=== PATIENT | male | born 1965 | race Caucasian/White ===

== ENCOUNTER 2022-01-12 01:52 | Emergency (ER) | payer BC ==
[2022-01-12 02:48] VITALS: TEMP 98.7
[2022-01-12] MEDS ORDERED: SODIUM CHLORIDE 0.9% 1,000 ML IV STA (03:02)
[2022-01-12] MEDS ORDERED: SODIUM CHLORIDE 0.9% 1,000 ML IV SCH (03:15)
[2022-01-12 03:39] LABS: Basophils # (A) 0.1 k/uL (0-0.2); Basophils % (A) 1 %; Eosinophils # (A) 0.2 k/uL (0-0.7); Eosinophils % (A) 3 %; HCT 45.7 % (39.0-53.0); HGB 14.5 gm/dL (13.0-17.5); Lymphocytes # (A) 1.7 k/uL (1.0-4.8); Lymphocytes % (A) 20 %; MCH 28.7 pg (25.0-35.0); MCHC 31.8 g/dL (31.0-37.0); MCV 90.1 fL (80.0-100.0); Mean Platelet Volume 7.8; Monocytes # (A) 0.7 k/uL (0-1.0); Monocytes % (A) 8 %; Neutrophils # (A) 5.7 k/uL (1.3-7.7); Neutrophils % (A) 67 %; Platelet Count 276 k/uL (150-450); RBC 5.07 m/uL (4.30-5.90); RDW 12.6 % (11.5-15.5); WBC 8.5 k/uL (3.8-10.6)
--- NOTE | 2022-01-12 03:41 | ED ---
Dizziness HPI - General Chief Complaint: Dizziness Stated Complaint: Dizziness Time Seen by Provider: 01/12/22 02:49 Source: patient, RN notes reviewed, old records reviewed Mode of arrival: wheelchair Limitations: no limitations - History of Present Illness Initial Comments: This is a 56-year-old male DF for evaluation of dizziness. 3-4 days of symptoms dizziness especially with change of position standing up room starts to spin around he feels very off balance. Symptoms again for the last 4 days again only with position change and notices worsening is lying down to sitting up position. Patient has no chest pain or shortness breath or abdominal pain. No medical history takes no medications no family history of significant medical disease MD Complaint: dizziness, lightheadedness, difficulty walking -: hour(s) Timing: sudden onset Description: sense of movement, "room spinning" History of Same: No History of Trauma: No Severity: moderate Improves With: remaining still Worsens With: nothing Associated Symptoms: ataxia, weakness - Related Data Home Medications Medication Instructions Recorded Confirmed No Known Home Medications 07/29/16 07/29/16 Allergies Allergy/AdvReac Type Severity Reaction Status Date / Time No Known Allergies Allergy Verified 01/12/22 02:48 Review of Systems ROS Statement: Those systems with pertinent positive or pertinent negative responses have been documented in the HPI. ROS Other: All systems not noted in ROS Statement are negative. Past Medical History Past Medical History: No Reported History History of Any Multi-Drug Resistant Organisms: None Reported Past Surgical History: No Surgical Hx Reported Past Psychological History: No Psychological Hx Reported Smoking Status: Never smoker Past Alcohol Use History: Occasional Past Drug Use History: None Reported General Exam - General Exam Comments Initial Comments: NIH of 0 Currently asymptomatic General appearance: alert, in no apparent distress Head exam: Present: atraumatic, normocephalic, normal inspection Eye exam: Present: normal appearance, PERRL, EOMI, nystagmus. Absent: scleral icterus, conjunctival injection, periorbital swelling ENT exam: Present: normal exam, mucous membranes moist Neck exam: Present: normal inspection. Absent: tenderness, meningismus, lymphadenopathy Respiratory exam: Present: normal lung sounds bilaterally. Absent: respiratory distress, wheezes, rales, rhonchi, stridor Cardiovascular Exam: Present: regular rate, normal rhythm, normal heart sounds. Absent: systolic murmur, diastolic murmur, rubs, gallop, clicks GI/Abdominal exam: Present: soft, normal bowel sounds. Absent: distended, tenderness, guarding, rebound, rigid Extremities exam: Present: normal inspection, full ROM, normal capillary refill. Absent: tenderness, pedal edema, joint swelling, calf tenderness Back exam: Present: normal inspection Neurological exam: Present: alert, oriented X3, CN II-XII intact Psychiatric exam: Present: normal affect, normal mood Skin exam: Present: warm, dry, intact, normal color. Absent: rash Course Vital Signs 01/12/22 02:44 Temperature 98.7 F Pulse Rate 66 Respiratory 19 Rate Blood Pressure 124/77 O2 Sat by Pulse 98 Oximetry - Reevaluation(s) Reevaluation #1: 01/12/22 05:08 Medical record is reviewed Reevaluation #2: 01/12/22 05:08 Patient informed results and questions answered Reevaluation #3: 01/12/22 05:08 Patient requesting discharge at this time Medical Decision Making - Medical Decision Making 56 male DF for evaluation. Patient Dese for evaluation regards to dizziness vertiginous symptoms. CT brain negative for acute disease labwork is normal patient is able to eat discharged home to get rest and do continued exercises. - Lab Data Result diagrams: 01/12/22 03:33 01/12/22 03:33 Lab Results 01/12/22 01/12/22 01/12/22 Range/Units 03:33 03:33 03:33 WBC 8.5 (3.8-10.6) k/uL RBC 5.07 (4.30-5.90) m/uL Hgb 14.5 (13.0-17.5) gm/dL Hct 45.7 (39.0-53.0) % MCV 90.1 (80.0-100.0) fL MCH 28.7 (25.0-35.0) pg MCHC 31.8 (31.0-37.0) g/dL RDW 12.6 (11.5-15.5) % Plt Count 276 (150-450) k/uL MPV 7.8 Neutrophils % 67 % Lymphocytes % 20 % Monocytes % 8 % Eosinophils % 3 % Basophils % 1 % Neutrophils # 5.7 (1.3-7.7) k/uL Lymphocytes # 1.7 (1.0-4.8) k/uL Monocytes # 0.7 (0-1.0) k/uL Eosinophils # 0.2 (0-0.7) k/uL Basophils # 0.1 (0-0.2) k/uL PT 10.5 (9.0-12.0) sec INR 1.0 (<1.2) APTT 24.0 (22.0-30.0) sec Sodium (137-145) mmol/L Potassium (3.5-5.1) mmol/L Chloride (98-107) mmol/L Carbon Dioxide (22-30) mmol/L Anion Gap mmol/L BUN (9-20) mg/dL Creatinine (0.66-1.25) mg/dL Est GFR (CKD-EPI)AfAm (>60 ml/min/1.73 sqM) Est GFR (CKD-EPI)NonAf (>60 ml/min/1.73 sqM) Glucose (74-99) mg/dL Plasma Lactic Acid Mat (0.7-2.0) mmol/L Calcium (8.4-10.2) mg/dL Phosphorus (2.5-4.5) mg/dL Magnesium (1.6-2.3) mg/dL Total Bilirubin (0.2-1.3) mg/dL AST (17-59) U/L ALT (4-49) U/L Alkaline Phosphatase (38-126) U/L Troponin I (0.000-0.034) ng/mL NT-Pro-B Natriuret Pep pg/mL Total Protein (6.3-8.2) g/dL Albumin (3.5-5.0) g/dL Urine Color Light Yellow Urine Appearance Clear (Clear) Urine pH 6.0 (5.0-8.0) Ur Specific [place] 1.006 (1.001-1.035) Urine Protein Negative (Negative) Urine Glucose (UA) Negative (Negative) Urine Ketones Negative (Negative) Urine Blood Negative (Negative) Urine Nitrite Negative (Negative) Urine Bilirubin Negative (Negative) Urine Urobilinogen <2.0 (<2.0) mg/dL Ur Leukocyte Esterase Negative (Negative) 01/12/22 01/12/22 01/12/22 Range/Units 03:33 03:33 03:33 WBC (3.8-10.6) k/uL RBC (4.30-5.90) m/uL Hgb (13.0-17.5) gm/dL Hct (39.0-53.0) % MCV (80.0-100.0) fL MCH (25.0-35.0) pg MCHC (31.0-37.0) g/dL RDW (11.5-15.5) % Plt Count (150-450) k/uL MPV Neutrophils % % Lymphocytes % % Monocytes % % Eosinophils % % Basophils % % Neutrophils # (1.3-7.7) k/uL Lymphocytes # (1.0-4.8) k/uL Monocytes # (0-1.0) k/uL Eosinophils # (0-0.7) k/uL Basophils # (0-0.2) k/uL PT (9.0-12.0) sec INR (<1.2) APTT (22.0-30.0) sec Sodium 136 L (137-145) mmol/L Potassium 4.4 (3.5-5.1) mmol/L Chloride 103 (98-107) mmol/L Carbon Dioxide 26 (22-30) mmol/L Anion Gap 7 mmol/L BUN 14 (9-20) mg/dL Creatinine 0.80 (0.66-1.25) mg/dL Est GFR (CKD-EPI)AfAm >90 (>60 ml/min/1.73 sqM) Est GFR (CKD-EPI)NonAf >90 (>60 ml/min/1.73 sqM) Glucose 127 H (74-99) mg/dL Plasma Lactic Acid Mat 1.6 (0.7-2.0) mmol/L Calcium 9.3 (8.4-10.2) mg/dL Phosphorus 4.1 (2.5-4.5) mg/dL Magnesium 2.3 (1.6-2.3) mg/dL Total Bilirubin 0.9 (0.2-1.3) mg/dL AST 24 (17-59) U/L ALT 17 (4-49) U/L Alkaline Phosphatase 70 (38-126) U/L Troponin I <0.012 (0.000-0.034) ng/mL NT-Pro-B Natriuret Pep pg/mL Total Protein 7.2 (6.3-8.2) g/dL Albumin 4.2 (3.5-5.0) g/dL Urine Color Urine Appearance (Clear) Urine pH (5.0-8.0) Ur Specific [place] (1.001-1.035) Urine Protein (Negative) Urine Glucose (UA) (Negative) Urine Ketones (Negative) Urine Blood (Negative) Urine Nitrite (Negative) Urine Bilirubin (Negative) Urine Urobilinogen (<2.0) mg/dL Ur Leukocyte Esterase (Negative) 01/12/22 Range/Units 03:33 WBC (3.8-10.6) k/uL RBC (4.30-5.90) m/uL Hgb (13.0-17.5) gm/dL Hct (39.0-53.0) % MCV (80.0-100.0) fL MCH (25.0-35.0) pg MCHC (31.0-37.0) g/dL RDW (11.5-15.5) % Plt Count (150-450) k/uL MPV Neutrophils % % Lymphocytes % % Monocytes % % Eosinophils % % Basophils % % Neutrophils # (1.3-7.7) k/uL Lymphocytes # (1.0-4.8) k/uL Monocytes # (0-1.0) k/uL Eosinophils # (0-0.7) k/uL Basophils # (0-0.2) k/uL PT (9.0-12.0) sec INR (<1.2) APTT (22.0-30.0) sec Sodium (137-145) mmol/L Potassium (3.5-5.1) mmol/L Chloride (98-107) mmol/L Carbon Dioxide (22-30) mmol/L Anion Gap mmol/L BUN (9-20) mg/dL Creatinine (0.66-1.25) mg/dL Est GFR (CKD-EPI)AfAm (>60 ml/min/1.73 sqM) Est GFR (CKD-EPI)NonAf (>60 ml/min/1.73 sqM) Glucose (74-99) mg/dL Plasma Lactic Acid Mat (0.7-2.0) mmol/L Calcium (8.4-10.2) mg/dL Phosphorus (2.5-4.5) mg/dL Magnesium (1.6-2.3) mg/dL Total Bilirubin (0.2-1.3) mg/dL AST (17-59) U/L ALT (4-49) U/L Alkaline Phosphatase (38-126) U/L Troponin I (0.000-0.034) ng/mL NT-Pro-B Natriuret Pep 36 pg/mL Total Protein (6.3-8.2) g/dL Albumin (3.5-5.0) g/dL Urine Color Urine Appearance (Clear) Urine pH (5.0-8.0) Ur Specific [place] (1.001-1.035) Urine Protein (Negative) Urine Glucose (UA) (Negative) Urine Ketones (Negative) Urine Blood (Negative) Urine Nitrite (Negative) Urine Bilirubin (Negative) Urine Urobilinogen (<2.0) mg/dL Ur Leukocyte Esterase (Negative) - Radiology Data Radiology results: report reviewed (CT brain CT had neck chest x-rays negative for acute disease), image reviewed Disposition Clinical Impression: Benign paroxysmal positional vertigo, Acute vestibular neuronitis, Vertigo Disposition: HOME SELF-CARE Condition: Good Instructions (If sedation given, give patient instructions): Vertigo (ED), Benign Paroxysmal Positional Vertigo (ED) Is patient prescribed a controlled substance at d/c from ED?: No Referrals: None,Stated [Primary Care Provider] - 1-2 days
[2022-01-12 04:05] LABS: ALT 17 U/L (4-49); AST 24 U/L (17-59); African American GFR (CKD) >90 (>60 ml/min/1.73 sqM); Albumin 4.2 g/dL (3.5-5.0); Alkaline Phosphatase 70 U/L (38-126); Anion Gap 7 mmol/L; Blood Urea Nitrogen 14 mg/dL (9-20); Calcium 9.3 mg/dL (8.4-10.2); Carbon Dioxide 26 mmol/L (22-30); Chloride 103 mmol/L (98-107); Glucose 127 mg/dL (74-99); Magnesium 2.3 mg/dL (1.6-2.3); Non-African American GFR(CKD) >90 (>60 ml/min/1.73 sqM); Phosphorus 4.1 mg/dL (2.5-4.5); Potassium 4.4 mmol/L (3.5-5.1); Prothrombin Time 10.5 sec (9.0-12.0); Sodium 136 mmol/L (137-145); Total Bilirubin 0.9 mg/dL (0.2-1.3); Total Protein 7.2 g/dL (6.3-8.2)
[2022-01-12 04:08] LABS: Appearance,Urine Clear (Clear); Bilirubin,Urine Negative (Negative); Blood,Urine Negative (Negative); Color,Urine Light Yellow; Glucose,Urine (UA) Negative (Negative); Ketones,Urine Negative (Negative); Leukocyte Esterase,Urine Negative (Negative); Nitrite,Urine Negative (Negative); Protein,Urine Negative (Negative); Specific Gravity,Urine 1.006 (1.001-1.035); Urobilinogen,Urine <2.0 mg/dL (<2.0)
--- NOTE | 2022-01-12 04:15 | CT ---
EXAMINATION TYPE: CT brain wo con DATE OF EXAM: 01/12/2022 COMPARISON: None HISTORY: VERTIGO CT DLP: 1072.4 mGycm Automated exposure control for dose reduction was used. Ventricles have normal size. There is no mass effect or midline shift. There is no sign of intracrani al hemorrhage. Calvarium is intact. Skull base is intact. Mastoid sinuses appear normal. There is no evidence of posterior fossa mass. IMPRESSION: Negative CT scan of the brain.
[2022-01-12] MEDS ORDERED: diphenhydrAMINE 50 MG/ML 1 ML VIAL IVP STA (05:10)
[2022-01-12] MEDS ORDERED: ONDANSETRON 4 MG/2 ML VIAL IVP STA (05:10)
[2022-01-12] MEDS ORDERED: MECLIZINE 12.5 MG TAB PO STA (05:10)
[2022-01-12] MEDS ORDERED: ONDANSETRON 4 MG ODT STARTER PACK 2 TAB BTL PO STA (05:10)
[2022-01-12 05:34] VITALS: BP 131/78; PULSE 78; RESP 18
== END 2022-01-12 06:10 | disposition home or self-care (01) ==
LOC: EC 01:52
DX: H81.10 Benign paroxysmal vertigo, unspecified ear (principal); H81.20 Vestibular neuronitis, unspecified ear
CPT/HCPCS: 36415; 83880; 80053; 83605; 83735; 84100; 84484; 85025; 85610; 85730; 81003; 70450; 99284; 96374; 96375; 96361 ×2; J1200; J2405; S0119

== ENCOUNTER 2022-02-03 14:28 | Emergency (ER) | payer BC ==
[2022-02-03 14:41] VITALS: BP 111/72; PULSE 65; RESP 16; TEMP 97.5
[2022-02-03] MEDS ORDERED: DIPH,PERTUS(ACELL)TETVAC-LF 0.5 ML VIAL IM ONE (14:59)
--- NOTE | 2022-02-03 15:03 | ED ---
Animal Bite HPI - General Chief Complaint: Animal Bite Stated Complaint: Dog Bite Right Hand Time Seen by Provider: 02/03/22 14:45 Source: patient, RN notes reviewed, old records reviewed Mode of arrival: ambulatory Limitations: no limitations - History of Present Illness Initial Comments: Patient is a 56-year-old male presenting to emergency Department with complaints of an animal bite to his right hand. He states this happened about an hour prior to arrival. He was outside visiting his neighbor when the neighbor's dog came up and bit him on the right hand. The neighbor has a Azeri Adams. It is unknown when of the dog's vaccination status however they do feel that the dog's vaccines are up-to-date. Patient's tetanus is not up-to-date. He is having some mild pain of the right hand, he states he has an old boxer's fracture of the right fifth metacarpal and is concerned that this has been reinjured. He denies any blood thinners, no active bleeding. There are no further complaints. - Related Data Previous Rx's Medication Instructions Recorded Meclizine [Antivert] 25 mg PO TID #15 tab 01/12/22 Allergies Allergy/AdvReac Type Severity Reaction Status Date / Time No Known Allergies Allergy Verified 02/03/22 14:39 Review of Systems ROS Statement: Those systems with pertinent positive or pertinent negative responses have been documented in the HPI. ROS Other: All systems not noted in ROS Statement are negative. Past Medical History Past Medical History: No Reported History History of Any Multi-Drug Resistant Organisms: None Reported Past Surgical History: No Surgical Hx Reported Past Psychological History: No Psychological Hx Reported Smoking Status: Never smoker Past Alcohol Use History: Occasional Past Drug Use History: None Reported General Exam - General Exam Comments Initial Comments: GENERAL: Patient is well-developed and well-nourished. Patient is nontoxic and in no acute distress. HEAD: Atraumatic, normocephalic. EYES: Pupils equal round and reactive to light, extraocular movements intact, sclera anicteric, conjunctiva are normal. Eyelids were unremarkable. LUNGS: Unlabored respirations. Breath sounds clear to auscultation bilaterally and equal. No wheezes rales or rhonchi. HEART: Regular rate and rhythm without murmurs, rubs or gallops. ABDOMEN: Soft, nontender, normoactive bowel sounds. MUSCULOSKELETAL: Patient has pain with palpation along the fifth metacarpal and along the stoma area. He does have full active range of motion of all 5 fingers. No clubbing or cyanosis. NEUROLOGICAL: Patient is alert and oriented x 3. Motor and sensory are also intact. Cranial nerves II through XII grossly intact. Symmetrical smile. Normal speech, normal gait. PSYCH: Normal mood, normal affect. SKIN: Warm, Dry, normal turgor, no rashes. He has 2 small puncture wounds, one on the dorsal side of the right hand over the fifth metacarpal, another wound to the palmar aspect along with the right thumb. There is no active bleeding. Each wound is approximately 0.5 cm. Limitations: no limitations Course Vital Signs 02/03/22 14:39 Temperature 97.5 F L Pulse Rate 65 Respiratory 16 Rate Blood Pressure 111/72 O2 Sat by Pulse 98 Oximetry Procedures - Procedures Initial comment: Patient's wound was irrigated with sterile saline, Steri-Strips, antibiotic ointment and a bandage was applied to both wounds on the right hand. Medical Decision Making - Medical Decision Making Patient is a 56-year-old male here with a dog bite to the right hand. This was his neighbor's dog, unsure vaccination status. Patient will be given his tetanus vaccine today. We discussed concerns for rabies vaccine, patient declines vaccine at this time. X-rays of the right hand show no acute fractures dislocations. Patient's wounds were cleaned, Steri-Strips, antibiotic ointment and bandage was applied. He tolerated procedure well. Patient's tetanus vaccine was updated. He is stable for discharge. Return parameters were discussed. Disposition Clinical Impression: Dog bite of right hand Disposition: HOME SELF-CARE Condition: Stable Instructions (If sedation given, give patient instructions): Animal Bite (ED) Additional Instructions: Please return to the Emergency Department if symptoms worsen or any other concerns. Keep area clean and dry, wash with mild soap and water. Apply antibiotic ointment twice daily for the first 3-4 days. Return for any signs of infection. Is patient prescribed a controlled substance at d/c from ED?: No Referrals: None,Stated [Primary Care Provider] - 1-2 days Time of Disposition: 16:03
--- NOTE | 2022-02-03 15:45 | XR ---
EXAMINATION TYPE: XR hand limited RT DATE OF EXAM: 02/03/2022 CLINICAL HISTORY: pain TECHNIQUE: Frontal, lateral images of the right hand are obtained. COMPARISON: None. FINDINGS: There is no acute fracture/dislocation evident. The joint spaces appear within normal limi ts. No radiopaque foreign body identified. Healed fracture fifth metacarpal. Cystic lesion distal pha lanx right third digit may reflect a cyst or enchondroma . IMPRESSION: There is no acute fracture or dislocation ICD 10 NO FRACTURE, INITIAL EVALUATION
[2022-02-03] MEDS ORDERED: BACITRACIN OINT 1 EACH PACKET TOPICAL ONE (15:58)
== END 2022-02-03 16:09 | disposition home or self-care (01) ==
LOC: EC 14:28
DX: S61.451A Open bite of right hand, initial encounter (principal); W54.0XXA Bitten by dog, initial encounter
CPT/HCPCS: 90471; 90715; 99283